=== PATIENT | male | born 2000 | race Caucasian/White ===

== ENCOUNTER 2022-04-07 17:16 | Emergency (ER) | payer OTHER, SELFPAY ==
[2022-04-07 17:18] VITALS: BP 106/79; PULSE 108; RESP 14; TEMP 36.8; O2SAT 100; BMI 18.2
--- NOTE | 2022-04-07 17:47 | EDS_ITS ---
HPI HPI - URI History of Present Illness Chief Complaint: Shortness of Breath Informant: patient Onset/Context/Timing Onset: Weeks (1) Context: Gradual Onset Timing: Intermittent Quality: Stabbing Location: Left chest Worsened by: - (Deep breathing) Relieved by: - (Nothing) Associated Symptoms Associated Symptoms: Positive for Nasal Congestion, Headache, Sinus Pressure, Myalgias, Nausea, Shortness of Breath, Chest Pain and Productive Cough; Negative for Vomiting, Diarrhea, Nonproductive cough or Hemoptysis Narrative Narrative: Patient presents with shortness of breath that has been getting worse over the last week. Patient states he was seen at an urgent care earlier this week and was given a prescription for prednisone. Patient states he took that for couple days and then stopped taking it. Patient states that his has been getting progressively worse over the past week. Patient states he has been having some pain in his chest with deep breathing. Patient describes it as stabbing. Patient also admits to sinus pressure and nasal congestion. Patient states he is coughing up some yellow sputum. Patient also admits to some myalgias and nausea. Patient denies any vomiting. Patient states his temperature at home was 100.3. ROS ROS ED Constitutional Constitutional ED: Reports fever(s); Denies chills Eyes Eyes: Denies blurry vision or change in vision ENT ENT ED: Reports rhinorrhea; Denies sore throat Cardiovascular Cardiovascular: Reports chest pain; Denies palpitations Respiratory/Chest Respiratory/Chest: Reports cough and dyspnea Gastrointestinal Gastrointestinal: Reports nausea; Denies vomiting Genitourinary Genitourinary ED: Reports dysuria; Denies hematuria Musculoskeletal Musculoskeletal: Reports neck pain; Denies back pain Integumentary Denies abscess or rash Neurologic Neurologic: Reports headache(s); Denies weakness Allergic/Immunologic Allergic/Immunologic ED: Denies mouth swelling or urticaria PFSH PFSH Medical History no medical history no medical history Allergy/AdvReac Type Severity Reaction Status Date / Time amoxicillin Allergy Rash Verified 04/07/22 17:18 Surgical History no surgical history no surgical history Social History (Updated 04/07/22 @ 17:[address] Jonathan Lake, DO) Smoking Status: Current every day smoker tobacco type: cigarettes EXAM Physical Exam Const Vital Signs: 04/07/22 17:18 04/07/22 18:06 04/07/22 18:08 Temperature 98.2 F 98.2 F Temperature Source Temporal Temporal Pulse Rate 108 H 108 H Respiratory Rate 14 14 Respiratory Effort Normal Non-Labored Respiratory Depth Normal Respiratory Pattern Normal Blood Pressure 106/79 106/79 Blood Pressure Mean 88 88 Pulse Ox 100 100 Oxygen Delivery Method Room Air Room Air Room Air 04/07/22 18:10 Temperature Temperature Source Pulse Rate 74 Respiratory Rate 16 Respiratory Effort Respiratory Depth Respiratory Pattern Normal Blood Pressure Blood Pressure Mean Pulse Ox Oxygen Delivery Method Positive well nourished and well developed General Appearance ED: well developed and NAD HEENT Reports moist mucous membranes Neck supple and no JVD Resp Effort and Inspection: pain with movement Auscultation: diminished lung sounds diffuse Cardio regular rate, regular rhythm and no murmurs GI normal to inspection, nondistended, normoactive bowel sounds Palpation: soft Extremity normal to inspection General Extremety ED: Negative for edema or tenderness General Extremity: Negative for edema Neuro oriented x3, CN's II-XII intact bilaterally and no sensory deficits noted Sensorium / Orientation: alert Motor Exam: strength 5/5 throughout Psych mental status grossly normal Skin no rashes or lesions noted MDM MDM MDM Narrative Medical decision making narrative: Patient was given a DuoNeb aerosol here. COVID precautions were maintained. Differential diagnosis includes pneumonia, COVID, influenza, pulmonary embolus, and other viral illness. Will obtain COVID-19 antigens to assess for COVID-19 infection. Influenza A and influenza B antigens will be obtained to assess for influenza infection. Chest x-ray will be obtained to assess for bacterial pneumonia. CBC will be obtained to assess for leukocytosis and anemia. Basic metabolic profile will be obtained to assess for electrolyte abnormality and renal function. D-dimer will be obtained to assess for potential pulmonary embolism. Lab Data Lab results narrative: CBC was reviewed and showed a mild leukocytosis of 13.3. Basic metabolic profile was reviewed and showed a potassium of 3.0. D-dimer was less than 0.27. Labs: Laboratory Results - last 24 hr 04/07/22 04/07/22 04/07/22 18:05 18:05 18:05 WBC 13.3 H RBC 4.80 Hgb 13.7 Hct 39.6 L MCV 82.5 MCH 28.5 MCHC 34.6 RDW Std Deviation 36.9 RDW Coeff of Markus 12.2 Plt Count 205 MPV 10.0 Immature Gran % (Auto) 0.200 Neut % (Auto) 64.0 Lymph % (Auto) 28.7 [place] % (Auto) 6.4 Eos % (Auto) 0.5 Baso % (Auto) 0.2 Absolute Neuts (auto) 8.5 H Absolute Lymphs (auto) 3.81 Nucleated RBC % 0 D-Dimer Quant (PE/DVT) < 0.27 L Sodium 140 Potassium 3.0 L Chloride 105 Carbon Dioxide 25.0 Anion Gap 10 BUN 8 Creatinine 0.87 Estim Creat Clear Calc 101.61 Est GFR (MDRD) Af Amer 138 Est GFR (MDRD) Non-Af 114 BUN/Creatinine Ratio 9.2 L Glucose 97 Calcium 9.4 Radiography Diagnostic Testing: Clinical Impression(s) from Imaging Studies Chest X-Ray 04/07/22 18:37 IMPRESSION: Mild peribronchial cuffing which can be seen in small airways disease such as bronchiolitis or asthma. Electronically Signed: Blade Zayas MD at 19:59 EST , PA and lateral chest x-ray was obtained. There are 2 views. On my independent interpretation, there is no acute cardiopulmonary process. There is no infiltrate. There is no cardiomegaly. Bony thorax is normal. Radiologist also interpreted the x-ray and noted some mild peribronchial cuffing. Treatment and Re-Evaluation Narrative: Patient was given a dose of oral potassium here. Patient is feeling somewhat better on reevaluation. Patient was advised of his findings. Patient was advised this most likely a viral upper respiratory infection. Patient was instructed to take ibuprofen or Tylenol as needed for any aches or fevers. Patient was instructed take [id number] decongestants as needed for congestion and cough. Patient was instructed to follow-up with his primary care physician in 5 to 7 days. Patient understood and was agreeable with the plan. All questions were answered. Discharge Plan Triage Chief Complaint: Shortness of Breath ED Provider: Jonathan Lake Dx/Rx/DC Orders Clinical Impression: Viral upper respiratory tract infection with cough, Tobacco use disorder Instructions: ED URI, Viral, No Abx (Adult) Primary Care Provider: Hebert Cole Referrals: Hebert Cole MD [Primary Care Provider] - 5-7 Days Disposition Disposition: Home, Self Care
[2022-04-07 18:06] VITALS: O2SAT 98
[2022-04-07 18:08] VITALS: BP 106/79; PULSE 108; RESP 14; TEMP 36.8; O2SAT 100
[2022-04-07] MEDS: 0.9% Normal Saline 1,000 ML 1000 ML IV (18:09)
[2022-04-07 18:10] VITALS: PULSE 74; RESP 16
[2022-04-07] MEDS: Ipratropium/Albuterol Sulfate 3 ML AMPUL.NEB INHALATION (18:10)
[2022-04-07 18:18] LABS: Absolute Lymphocyte Count 3.81 X10^3/uL (0.83-4.51); Absolute Neutrophil Count 8.5 X10^3/uL (2.0-7.7); Basophil# 0.03 X10^3/uL; Basophil% 0.2 % (0-1); Eosinophil# 0.06 X10^3/uL; Eosinophils% 0.5 % (0-5); Hematocrit 39.6 % (40-54); Hemoglobin 13.7 g/dL (13.0-16.5); Lymphocyte # 3.81 X10^3/ul (0.83-4.51); Lymphocyte % 28.7 % (19-41); Mean Corp Hgb Conc 34.6 g/dL (32-36); Mean Corpuscular Hgb 28.5 pg (27.0-32.0); Mean Corpuscular Volume 82.5 fL (80-94); Monocyte# 0.85 X10^3/uL; Monocyte% 6.4 % (0-10); NRBC Flagged by Analyzer 0 % (0-5); Neutrophil # 8.48 X10^3/uL (2.7-7.7); Platelet Count 205 K/mm3 (150-450); RBC Distribution Width CV 12.2 % (11.6-14.6); RBC Distribution Width SD 36.9 fl (35.1-43.9); White Blood Count 13.3 K/mm3 (4.4-11.0)
[2022-04-07 18:30] LABS: D-Dimer Quantitative (DVT/PE) < 0.27 FEU/ug/m (0.27-0.49)
--- NOTE | 2022-04-07 18:37 | RAD_ITS ---
INDICATION: Cough EXAMINATION/TECHNIQUE: X-RAY - XR Chest 2 Views COMPARISON: None. FINDINGS: Mild peribronchial cuffing. The lungs are otherwise clear. The cardiomediastinal silhouette is unremarkable. No pleural effusion or pneumothorax. No acute osseous abnormalities. RAD/Chest PA and Lateral IMPRESSION: Mild peribronchial cuffing which can be seen in small airways disease such as bronchiolitis or asthma. Electronically Signed: Blade Zayas MD at 19:59 EST ,
[2022-04-07 18:38] LABS: Anion Gap 10 (5-15); BUN 8 mg/dL (7-18); BUN/Creat Ratio 9.2 RATIO (10-20); Calcium,Total 9.4 mg/dL (8.5-10.1); Chloride 105 mmol/L (98-107); Creatinine, Serum 0.87 mg/dL (0.70-1.30); EST Glomerular Filtration Rate 114 mL/min (>60); Est Glom Filt Rate - Afr Amer 138 mL/min (>60); Estimated Creatinine Clearance 101.61 ml/min; Glucose 97 mg/dL (74-106); Sodium Level 140 mmol/L (136-145)
[2022-04-07] MEDS: Potassium Chloride Oral Tablet 20 MEQ 40 MEQ PO (19:08)
[2022-04-07 20:56] VITALS: PULSE 90; RESP 18; O2SAT 98
== END 2022-04-07 20:56 | disposition home or self-care (01) ==
PROVIDERS: Emergency Provider Emergency Medicine; PCP Family Medicine; Visit Provider Emergency Medicine
DX: J06.9 Acute upper respiratory infection, unspecified (principal); F17.210 Nicotine dependence, cigarettes, uncomplicated; R06.02 Shortness of breath; R51.9 Headache, unspecified; Z20.822 Contact with and (suspected) exposure to COVID-19
CPT/HCPCS: 71046; 80048; 85025; 85379; 87428; 94640; 96360; 99284; J7030

== ENCOUNTER 2022-12-30 09:59 | Emergency (ER) | payer OTHER, SELFPAY ==
[2022-12-30 10:01] VITALS: BP 96/56; PULSE 64; RESP 16; TEMP 36.2; O2SAT 100; BMI 17.8
--- NOTE | 2022-12-30 10:16 | RAD_ITS ---
INDICATION: dyspnea EXAMINATION/TECHNIQUE: X-RAY - XR Chest 1 View COMPARISON: Prior study dated: 04/07/2022 FINDINGS: LINES/DEVICES: None. LUNGS: No consolidation, edema or effusion. No pneumothorax. MEDIASTINUM AND CARDIOVASCULAR STRUCTURES: Cardiac silhouette not enlarged. Central airways and mediastinal contour are unremarkable. BONES AND SOFT TISSUES: Unremarkable. RAD/Chest 1 View (Portable) IMPRESSION: No radiographic evidence of acute cardiopulmonary disease. Electronically Signed: Dae Ramesh MD at 11:05 EDT ,
--- NOTE | 2022-12-30 10:16 | ED.VIS.DYS ---
HPI History of Present Illness Chief Complaint: Shortness of Breath Informant: patient and spouse/S.O. Narrative Narrative: 22-year-old male presenting to the emergency department with a chief complaint of chest pain/dyspnea. Patient states that he was at work using a industrial air compressor to blow metal off of his chest when the air contacted the center of his chest. He states he did not think much of it till about 10 minutes later when he began to have a discomfort in his upper chest lower neck. He states it feels like there might be something there but he states he knows that there is not. He states the right side of his chest has been intermittently hurting and making him dyspneic. He states he is concerned that he blew air into his body. He denies any wounds. [facility] Medical History (Updated 12/30/22 @ 10:23 by Laura Marcum) Shortness of breath Allergy/AdvReac Type Severity Reaction Status Date / Time amoxicillin Allergy Rash Verified 04/07/22 17:18 Social History Smoking Status: Current every day smoker tobacco type: cigarettes ROS ROS ED Constitutional Constitutional ED: Denies chills or weight loss Eyes Eyes: Denies change in vision or diplopia ENT ENT ED: Reports other Details: See history of present illness ; Denies ear pain, rhinorrhea or sore throat Cardiovascular Cardiovascular: Reports chest pain; Denies orthopnea, palpitations or racing heartbeat Respiratory/Chest Respiratory/Chest: Reports dyspnea; Denies cough or orthopnea Gastrointestinal Gastrointestinal: Denies abdominal pain, diarrhea, nausea or vomiting Genitourinary Genitourinary ED: Denies dysuria, hematuria or urinary frequency Musculoskeletal Musculoskeletal: Denies arthralgias or myalgias Integumentary Denies abscess or rash Neurologic Neurologic: Denies headache(s) or weakness Psychiatric Psychiatric: Denies anxiety, depression, suicidal ideation or suicidal thoughts Endocrine Endocrinology: Denies polydipsia, polyphagia or polyuria Allergic/Immunologic Allergic/Immunologic ED: Denies mouth swelling, tongue swelling or urticaria EXAM Physical Exam Const Vital Signs: 12/30/22 10:01 12/30/22 10:23 Temperature 97.2 F L Temperature Source Temporal Pulse Rate 64 Respiratory Rate 16 Respiratory Effort Normal Non-Labored Respiratory Depth Normal Respiratory Pattern Normal Blood Pressure 96/56 L Blood Pressure Mean 69 Pulse Ox 100 Oxygen Delivery Method Room Air Positive well nourished and well developed General Appearance ED: well developed HEENT Reports normocephalic, head/scalp atraumatic and moist mucous membranes HEENT Narrative: Handling secretions normal. Phonation normal Eyes PERRL and EOMs intact bilaterally Neck no lymphadenopathy, supple and no JVD Neck Narrative: No subcutaneous emphysema Chest Wall Chest Narrative: No subcutaneous emphysema. No wounds noted. Resp normal respiratory effort and clear to auscultation bilaterally Cardio regular rate, regular rhythm and no murmurs GI normal to inspection, nondistended, normoactive bowel sounds and non-tender Palpation: soft Back/Spine no CVA tenderness and normal ROM Extremity normal to inspection General Extremety ED: Negative for edema General Extremity: Negative for edema Neuro oriented x3 and CN's II-XII intact bilaterally Sensorium / Orientation: alert Motor Exam: strength 5/5 throughout Psych mental status grossly normal Mood & Affect: Negative for depressed or tearful Skin no rashes or lesions noted and no wounds MDM MDM MDM Narrative Medical decision making narrative: My independent interpretation of the single view chest x-ray is no acute process. Specifically no obvious subcutaneous emphysema or pneumothorax noted. Patient was given reassurance. At this point I do not see any evidence of foreign body subcutaneous emphysema or other injury. Would recommend observation at home return if worsening or concerns. Radiography Diagnostic Testing: Clinical Impression(s) from Imaging Studies Chest X-Ray 12/30/22 10:16 IMPRESSION: No radiographic evidence of acute cardiopulmonary disease. Electronically Signed: Dae Ramesh MD at 11:05 EDT , Discharge Plan Triage Chief Complaint: Shortness of Breath ED Provider: Ramirez Rios Dx/Rx/DC Orders Clinical Impression: Acute dyspnea, Chest pain Primary Care Provider: Hebert Cole Referrals: Hebert Cole MD [Primary Care Provider] - As Needed [facility] [Non-Staff] - As Needed Disposition Disposition: Home, Self Care
== END 2022-12-30 11:14 | disposition home or self-care (01) ==
PROVIDERS: Emergency Provider Emergency Medicine; PCP Family Medicine; Visit Provider Emergency Medicine
DX: R06.02 Shortness of breath (principal); R07.9 Chest pain, unspecified; F17.210 Nicotine dependence, cigarettes, uncomplicated
CPT/HCPCS: 71045; 99282

== ENCOUNTER 2023-07-21 16:55 | Emergency (ER) | payer SELFPAY ==
[2023-07-21 16:55] VITALS: BP 160/99; PULSE 81; RESP 14; TEMP 36.1; O2SAT 98; BMI 18.2
[2023-07-21 17:28] LABS: Bacteria 0 SEEN /hpf (None Seen); Mucous, Urine 0 SEEN /hpf (<or=2+); Red Blood Cells-Urine 0 SEEN /hpf (0-5); Squamous Epithelial Cells - UA 0 SEEN /hpf (0-5); White Blood Cells 0 SEEN /hpf (0-5)
[2023-07-21 17:36] LABS: Color, Urine Yellow (Yellow); Glucose, Dipstick Normal (Normal); Ketone-Dipstick Negative (Negative); Leukocyte Esterase-Dipstick Negative /ul (Negative); Nitrite-Dipstick Negative (Negative); Occult Blood-Urine Negative /ul (Negative); Protein-Dipstick Negative (Negative); Urine Bilirubin Dipstick Negative (Negative); Urine Clarity Clear (Clear); Urine Urobilinogen Normal (Normal)
--- NOTE | 2023-07-21 18:30 | EX.ED.GUMALE ---
HPI History of Present Illness Chief Complaint: Male Pain/Injury Detail of Chief Complaint: Patient complains of pain and swelling left testicle Informant: patient Pain Onset: Days Context: Sudden Onset Timing: Continuous Current Severity: Mild Maximum Severity: Moderate Worsened by: Nothing specific Relieved by: Nothing Appearance Lesion(s): No Genital Edema: No Penile Discharge Genital Discharge Amount: None Urinary Symptoms Genitourinary Symptoms: No Symptoms Related History Sexually: Active and Single Partner Unprotected Sex: Yes STD: No Epididymitis: No Bladder/Kidney Infection: No Enlarged Prostate: No Prostate Infection: No Prostate Cancer: No Narrative Narrative: Patient is a 23-year-old male. He presents with left testicular pain. He may have sustained blunt trauma due to his kids jumping on him and hitting him in the groin area. He denies dysuria, frequency, Prior similar symptoms: No Recent Illness/Hospitalization: No PFSH PFSH Medical History Shortness of breath Allergy/AdvReac Type Severity Reaction Status Date / Time amoxicillin Allergy Rash Verified 07/21/23 16:56 Social History (Updated 07/21/23 @ 18:[address] Jozef Ragland MD) household members: spouse and children Smoking Status: Current every day smoker tobacco type: cigarettes ROS ROS ED Genitourinary Genitourinary ED: Reports other Details: And HPI narrative ; Denies dysuria, hematuria or urinary frequency Integumentary Denies rash Neurologic Neurologic: Denies headache(s), paresthesias or weakness Hematologic/Lymphatic Hematologic/Lymphatic: Denies easy bruising EXAM Physical Exam Const Vital Signs: 07/21/23 16:55 07/21/23 18:48 Temperature 97 F L Temperature Source Temporal Pulse Rate 81 72 Respiratory Rate 14 16 Blood Pressure 160/99 H 99/59 L Blood Pressure Mean 119 72 Pulse Ox 98 99 Oxygen Delivery Method Room Air Room Air Positive well nourished and well developed General Appearance ED: well developed and NAD; Negative for pallor HEENT Reports moist mucous membranes normocephalic and atraumatic Eyes PERRL and EOMs intact bilaterally General Eye ED: Negative for scleral icterus Resp normal respiratory effort Cardio regular rate and regular rhythm GI non-tender, non-distended and no masses Auscultation: normoactive bowel sounds Palpation: soft no CVA tenderness Narrative: Circumcised male without penile lesions or urethral discharge. Is no erythema of the urethra. Testicular lie is normal. The left epididymis is slightly enlarged compared to the right. There is mild tenderness. There is no inguinal lymphadenopathy. There is no inguinal mass. Positive cremasteric reflex bilaterally. Back/Spine no CVA tenderness Neuro oriented x3 and CN's II-XII intact bilaterally Sensorium / Orientation: alert Psych mental status grossly normal Skin General Skin Exam: Negative for jaundice or pallor Lesions: no lesions Rashes: no rashes MDM MDM MDM Narrative Medical decision making narrative: Suspect patient has traumatic epididymitis. Will obtain urine to see if there is any evidence of pyuria or bacteria. Clinically there is no evidence for varicocele. Doubt STI since he is and reports monogamous relationship. Will obtain urine for GC and chlamydia. Lab Data Attestation: I reviewed the patient's lab results. Labs: Laboratory Results - last 24 hr 07/21/23 17:21 Urine Color Yellow Urine Clarity Clear Urine pH 8.0 Ur Specific [place] 1.020 Urine Protein Negative Urine Glucose (UA) Normal Urine Ketones Negative Urine Occult Blood Negative Urine Nitrite Negative Urine Bilirubin Negative Urine Urobilinogen Normal Ur Leukocyte Esterase Negative Urine RBC 0 SEEN Urine WBC 0 SEEN Ur Squamous Epith Cells 0 SEEN Urine Bacteria 0 SEEN Urine Mucus 0 SEEN Treatment and Re-Evaluation Narrative: Suspect patient has traumatic epididymitis. Will treat with NSAID since he has no contraindication. Discharge Plan Triage Chief Complaint: Male Pain/Injury ED Provider: Jozef Ragland Dx/Rx/DC Orders Clinical Impression: Epididymitis Instructions: ED Epididymitis Primary Care Provider: Hebert Cole Referrals: Hebert Cole MD [Primary Care Provider] - 1 Week if not improving Activity Restrictions/Additional Instructions: Recommend 4 ibuprofen tablets every 8 hours or 2 Aleve tablets every 12 hours for the next 3 to 5 days. Disposition Disposition: Home, Self Care
[2023-07-21 18:48] VITALS: BP 99/59; PULSE 72; RESP 16; O2SAT 99
[2023-07-21 19:10] VITALS: BP 95/74; PULSE 70; RESP 16; TEMP 36.6; O2SAT 99
== END 2023-07-21 19:11 | disposition home or self-care (01) ==
PROVIDERS: Emergency Provider Emergency Medicine; PCP Family Medicine; Visit Provider Emergency Medicine
DX: N45.1 Epididymitis (principal); F17.210 Nicotine dependence, cigarettes, uncomplicated
CPT/HCPCS: 81001; 87491; 87591; 99282

== ENCOUNTER 2023-08-18 16:13 | Emergency (ER) | payer SELFPAY ==
[2023-08-18 16:13] VITALS: BP 94/68; PULSE 78; RESP 14; TEMP 37.2; O2SAT 98; BMI 18.1
--- NOTE | 2023-08-18 17:28 | EX.ED.DYSGE1 ---
HPI <CAMPBELL Saldivar - Last Filed: 08/18/23 18:41> History of Present Illness Chief Complaint: Other, Pain/Inj Narrative Narrative: Patient is a 23-year-old male with no significant medical history presents to the emergency department for concern of a lymph node that will not go away to his left anterior neck. Patient states that he has been on 2 rounds of antibiotics, he has had ear infections. Patient finished azithromycin 2 days ago. He denies any ear pain throat pain any fever chills or feeling ill. He states the left anterior cervical lymph node is still bothering him and he googled what this could be and he is concerned he has mono or cancer. Patient is here for evaluation. [facility] <CAMPBELL Saldivar - Last Filed: 08/18/23 18:41> [facility] Medical History Shortness of breath Allergy/AdvReac Type Severity Reaction Status Date / Time amoxicillin Allergy Rash Verified 08/18/23 16:14 Social History (Updated 07/21/23 @ 18:[address] Jozef Ragland MD) household members: spouse and children Smoking Status: Current every day smoker tobacco type: cigarettes ROS <CAMPBELL Saldivar - Last Filed: 08/18/23 18:41> ROS ED ROS Narrative Constitutional: Negative for fever, chills, weight loss, weakness Eyes: Negative for vision loss, vision change, double vision ENT: Negative for any sore throat, ear pain, congestion. Positive left known to his left lower neck Cardiovascular: Negative for any chest pain, tightness, palpitations Respiratory: Negative for any cough, sputum production, hemoptysis, dyspnea, dyspnea on exertion, orthopnea Gastrointestinal: Negative for any abdominal pain, nausea, vomiting, diarrhea, constipation, blood in stool, blood in vomit : Negative for any urinary frequency, dysuria, retention, blood in urine Muscle skeletal: Negative for any neck pain, back pain Neurological: Negative for any headache, syncope, dizziness Skin: Negative for any rashes, itching, abrasions, lacerations Psychiatric: Negative for any depression, anxiety, stress, suicidal ideation, homicidal ideation Hematologic: Negative for any excessive bruising, easy bleeding EXAM <CAMPBELL Saldivar - Last Filed: 08/18/23 18:41> Physical Exam Narrative Exam Narrative: Vital signs reviewed. HEET: Head normocephalic atraumatic, TMs clear bilaterally. Posterior pharynx is clear, moist mucous membranes. Nares clear bilaterally. Neck: Supple with no tenderness. No signs of meningismus. Patient does have a small area to his anterior cervical chain there is slight noticeable lymph node. However the patient is thin, there is no erythema, is not tender. Cardiac: Regular rate and rhythm no murmurs gallops or rubs, equal peripheral pulses bilaterally. Respiratory: Lungs clear to auscultation bilaterally. No chest tenderness. Abdomen: Soft, nontender, nondistended. No abdominal bruit or pulsatile masses. No hepatosplenomegaly Extremities: No peripheral edema, no signs of gross trauma or deformity. Active full range of motion of all extremities. Neuro: Cranial nerves II through XII intact, no focal neurological deficits. Skin: Clean dry and intact with no rash, purpura, petechiae, vesicles or pustules. Backs/flank: No CVA tenderness, no midline spinal tenderness, no deformity. Psych: Normal mood and affect. No SI, HI or acute psychosis. Const Vital Signs: 08/18/23 16:13 08/18/23 18:00 Temperature 99 F 97.6 F L Temperature Source Temporal Pulse Rate 78 64 Respiratory Rate 14 18 Blood Pressure 94/68 128/78 H Blood Pressure Mean 76 94 Pulse Ox 98 99 Oxygen Delivery Method Room Air <Dr. Audi Blanco DO - Last Filed: 08/18/23 22:45> Physical Exam Const Vital Signs: 08/18/23 16:13 08/18/23 18:00 Temperature 99 F 97.6 F L Temperature Source Temporal Pulse Rate 78 64 Respiratory Rate 14 18 Blood Pressure 94/68 128/78 H Blood Pressure Mean 76 94 Pulse Ox 98 99 Oxygen Delivery Method Room Air MDM <CAMPBELL Saldivar - Last Filed: 08/18/23 18:41> [facility] Lab Data Labs: Laboratory Results - last 24 hr 08/18/23 17:55 WBC 7.6 RBC 5.17 Hgb 14.8 Hct 43.2 MCV 83.6 MCH 28.6 MCHC 34.3 RDW Std Deviation 37.2 RDW Coeff of Markus 12.3 Plt Count 246 MPV 9.9 Immature Gran % (Auto) 0.300 Neut % (Auto) 58.0 Lymph % (Auto) 31.4 [place] % (Auto) 7.8 Eos % (Auto) 2.0 Baso % (Auto) 0.5 Absolute Neuts (auto) 4.4 Absolute Lymphs (auto) 2.39 Nucleated RBC % 0 Sodium 138 Potassium 3.6 Chloride 102 Carbon Dioxide 32.0 Anion Gap 4 L BUN 9 Creatinine 0.92 Estim Creat Clear Calc 93.75 Est GFR (MDRD) Af Amer 128 Est GFR (MDRD) Non-Af 106 BUN/Creatinine Ratio 9.7 L Glucose 88 Calcium 9.3 Monoscreen Negative Treatment and Re-Evaluation :: Differential diagnosis includes however is not limited to: Lymphadenopathy, strep, mono, lymphoma Patient appears generally well, patient appears nontoxic, vital signs are stable. Patient presents to the emergency department with complaints of left cervical lymphadenopathy that is been ongoing for 1.5 months. Patient looks well, I have low suspicion for any acute process. The patient is thin, and he could just be feeling a slight lymphadenopathy. Patient will receive some basic laboratory values CBC BMP as well as a mononucleosis test. Patient will be reevaluated. Patient's laboratory values show a normal CBC, chemistries were unremarkable, monoscreen was negative. At this time, do believe that the patient is suffering from lymphadenopathy, unclear etiology. Patient has no signs or symptoms of any bacterial infection. Patient will be given follow-up with ENT. Instructed return for any worsening symptoms. Patient is agreeable with the plan. Patient is happy with the plan of care, he feels much better. Stable for discharge. <Dr. Audi Blanco, DO - Last Filed: 08/18/23 22:45> [facility] Lab Data Attestation: I reviewed the patient's lab results. Labs: Laboratory Results - last 24 hr 08/18/23 17:55 WBC 7.6 RBC 5.17 Hgb 14.8 Hct 43.2 MCV 83.6 MCH 28.6 MCHC 34.3 RDW Std Deviation 37.2 RDW Coeff of Markus 12.3 Plt Count 246 MPV 9.9 Immature Gran % (Auto) 0.300 Neut % (Auto) 58.0 Lymph % (Auto) 31.4 [place] % (Auto) 7.8 Eos % (Auto) 2.0 Baso % (Auto) 0.5 Absolute Neuts (auto) 4.4 Absolute Lymphs (auto) 2.39 Nucleated RBC % 0 Sodium 138 Potassium 3.6 Chloride 102 Carbon Dioxide 32.0 Anion Gap 4 L BUN 9 Creatinine 0.92 Estim Creat Clear Calc 93.75 Est GFR (MDRD) Af Amer 128 Est GFR (MDRD) Non-Af 106 BUN/Creatinine Ratio 9.7 L Glucose 88 Calcium 9.3 Monoscreen Negative Treatment and Re-Evaluation :: Differential diagnosis includes however is not limited to: Lymphadenopathy, strep, mono, lymphoma Patient appears generally well, patient appears nontoxic, vital signs are stable. Patient presents to the emergency department with complaints of left cervical lymphadenopathy that is been ongoing for 1.5 months. Patient looks well, I have low suspicion for any acute process. The patient is thin, and he could just be feeling a slight lymphadenopathy. Patient will receive some basic laboratory values CBC BMP as well as a mononucleosis test. Patient will be reevaluated. Patient's laboratory values show a normal CBC, chemistries were unremarkable, monoscreen was negative. At this time, do believe that the patient is suffering from lymphadenopathy, unclear etiology. Patient has no signs or symptoms of any bacterial infection. Patient will be given follow-up with ENT. Instructed return for any worsening symptoms. Patient is agreeable with the plan. Patient is happy with the plan of care, he feels much better. Stable for discharge. Attending note: Patient seen and evaluated with loans consultant. I perform my own [id number] evaluation. I agree with the plan of work-up. Presents here for cervical no there for the last 6 weeks. Urgent care twice reported did not get evaluated he is treated for an ear infection still has symptoms concerns. Concerns of cancer. Denies throat pain denies trouble swallowing. Exam thin male, palpation had anterior superior left cervical adenopathy very small. Nontender. CBC checked normal white count mono negative. Reassured with findings. He is given follow-up with ENT as an outpatient further evaluation. Discharge Plan Triage Chief Complaint: Other, Pain/Inj ED Midlevel Provider: Mumtaz Corona ED Provider: Audi Blanco Dx/Rx/DC Orders Clinical Impression: Adenopathy, cervical Instructions: Lymphadenopathy Primary Care Provider: Hebert Cole Referrals: Ibrahima Shi MD [Med Staff - Active Staff] - Hebert Cole MD [Primary Care Provider] - Activity Restrictions/Additional Instructions: Please follow-up outpatient. You had a normal examination today. Print Language: B[place]udian Disposition Disposition: Home, Self Care Discharge Date/Time: 08/18/23 18:49
[2023-08-18 18:00] VITALS: BP 128/78; PULSE 64; RESP 18; TEMP 36.4; O2SAT 99
[2023-08-18 18:07] LABS: Absolute Lymphocyte Count 2.39 X10^3/uL (0.83-4.51); Absolute Neutrophil Count 4.4 X10^3/uL (2.0-7.7); Basophil# 0.04 X10^3/uL; Basophil% 0.5 % (0-1); Eosinophil# 0.15 X10^3/uL; Hematocrit 43.2 % (40-54); Hemoglobin 14.8 g/dL (13.0-16.5); Lymphocyte # 2.39 X10^3/ul (0.83-4.51); Lymphocyte % 31.4 % (19-41); Mean Corp Hgb Conc 34.3 g/dL (32-36); Mean Corpuscular Hgb 28.6 pg (27.0-32.0); Mean Corpuscular Volume 83.6 fL (80-94); Mean Platelet Vol. 9.9 fl (6.2-12.0); Monocyte# 0.59 X10^3/uL; Monocyte% 7.8 % (0-10); NRBC Flagged by Analyzer 0 % (0-5); Neutrophil # 4.42 X10^3/uL (2.7-7.7); Platelet Count 246 K/mm3 (150-450); RBC Distribution Width CV 12.3 % (11.6-14.6); RBC Distribution Width SD 37.2 fl (35.1-43.9); Red Blood Count 5.17 M/mm3 (4.6-6.2); White Blood Count 7.6 K/mm3 (4.4-11.0)
[2023-08-18 18:23] LABS: Anion Gap 4 (5-15); BUN 9 mg/dL (7-18); BUN/Creat Ratio 9.7 RATIO (10-20); Calcium,Total 9.3 mg/dL (8.5-10.1); Chloride 102 mmol/L (98-107); Creatinine, Serum 0.92 mg/dL (0.70-1.30); EST Glomerular Filtration Rate 106 mL/min (>60); Est Glom Filt Rate - Afr Amer 128 mL/min (>60); Estimated Creatinine Clearance 93.75 ml/min; Glucose 88 mg/dL (74-106); Potassium 3.6 mmol/L (3.5-5.1); Sodium Level 138 mmol/L (136-145)
[2023-08-18 18:29] LABS: Internal QC Validated? YES +Cl - CLEAR BKGD; Monotest Negative (Negative); Record Kit Lot#, Mono 13241033
== END 2023-08-18 18:49 | disposition home or self-care (01) ==
PROVIDERS: Nurse Practitioner; Emergency Provider Emergency Medicine; PCP Family Medicine; Visit Provider Emergency Medicine
DX: R59.0 Localized enlarged lymph nodes (principal); F17.210 Nicotine dependence, cigarettes, uncomplicated
CPT/HCPCS: 80048; 85025; 86308; 99282